=== PATIENT | male | born 1975 | race African-American/Black ===

== ENCOUNTER 2020-01-26 17:37 | Emergency (ER) | payer OTHER ==
[2020-01-26 17:55] LABS: Glucose,Whole Blood 118 mg/dL (75-99)
[2020-01-26] MEDS ORDERED: SODIUM CHLORIDE 0.9% 1,000 ML IV STA (18:14)
[2020-01-26] MEDS ORDERED: predniSONE 20 MG TAB PO STA (18:14)
[2020-01-26] MEDS ORDERED: IPRATROPIUM-ALBUTEROL 3 ML NEB INHALATION STA (18:14)
[2020-01-26] MEDS ORDERED: FAMOTIDINE 20 MG/2 ML VIAL IV STA (18:15)
[2020-01-26 19:31] LABS: Basophils # (A) 0.1 k/uL (0-0.2); Basophils % (A) 1 %; Eosinophils # (A) 0.1 k/uL (0-0.7); Eosinophils % (A) 1 %; HCT 42.6 % (39.0-53.0); HGB 13.7 gm/dL (13.0-17.5); Lymphocytes % (A) 11 %; MCH 28.3 pg (25.0-35.0); MCHC 32.1 g/dL (31.0-37.0); MCV 88.1 fL (80.0-100.0); Mean Platelet Volume 7.6; Monocytes # (A) 0.4 k/uL (0-1.0); Monocytes % (A) 5 %; Neutrophils # (A) 7.2 k/uL (1.3-7.7); Neutrophils % (A) 81 %; Platelet Count 318 k/uL (150-450); RBC 4.84 m/uL (4.30-5.90); RDW 13.1 % (11.5-15.5)
[2020-01-26 19:40] LABS: Albumin 4.4 g/dL (3.5-5.0); Calcium 9.4 mg/dL (8.4-10.2); Potassium 5.2 mmol/L (3.5-5.1); Total Bilirubin 0.7 mg/dL (0.2-1.3); Total Protein 8.1 g/dL (6.3-8.2)
--- NOTE | 2020-01-26 19:45 | XR ---
EXAMINATION TYPE: XR chest 2V DATE OF EXAM: 01/26/2020 COMPARISON: None INDICATION: Difficulty breathing, coughing TECHNIQUE: Frontal and lateral views of the chest are obtained. FINDINGS: The heart size is normal. The pulmonary vasculature is normal. There is a left lower lobe infiltrate. Lungs otherwise appear clear. IMPRESSION: 1. Clinical correlation recommended for left lower lobe pneumonia.
--- NOTE | 2020-01-26 19:49 | CT ---
EXAMINATION TYPE: CT brain tree wo con DATE OF EXAM: 01/26/2020 COMPARISON: HISTORY: fall following syncopal episode CT DLP: 1564.4 mGycm, Automated exposure control for dose reduction was used. CONTRAST: Patient injected with mL of . CT of the brain is performed utilizing 3 mm thick sections through the posterior fossa and 3 mm thick sections through the remaining calvarium. Study is performed within 24 hours of arrival to the hospital. No abnormal hyperdensity is present to suggest an acute intracranial hemorrhage. No mass lesion is evident. No acute infarcts are evident. Ventricles and sulci are appropriate for the patient age. Paranasal sinuses and mastoid air cells within the [id number] are clear. IMPRESSIONS: 1. Normal CT brain. CT cervical spine. COMPARISON: None CT of the cervical spine is performed in the axial plane at 2 mm thick sections. Reconstructed image s in the coronal, and sagittal plane are reviewed on the computer. No acute fractures are evident. Some side bending is present. The patient is within the Gantry asymmetrically. Disc heights are preserved. Vertebral body heights are preserved. No spinal canal stenosis is evident. Some endplate spurring is noted within the cervical spine includ ing the right paracentral region C4 and C5. No neural foraminal stenosis is evident. IMPRESSIONS: 1. Mild degenerative changes. 2. No acute osseous abnormality evident.
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
[2020-01-26] MEDS ORDERED: cefTRIAXone IN SWFI 1,000 MG/10 ML SYRINGE IVP STA (20:06)
[2020-01-26 20:08] VITALS: RESP 17
[2020-01-26 20:34] LABS: INR 1.1 (<1.2); Partial Thromboplastin Time 23.1 sec (22.0-30.0); Prothrombin Time 10.9 sec (9.0-12.0)
[2020-01-26 20:57] VITALS: BP 142/74; PULSE 83; TEMP 98.8
== END 2020-01-26 20:54 | disposition home or self-care (01) ==
LOC: EC 17:37
DX: J18.9 Pneumonia, unspecified organism (principal); S09.90XA Unspecified injury of head, initial encounter; J45.909 Unspecified asthma, uncomplicated; Z79.51 Long term (current) use of inhaled steroids; Z87.891 Personal history of nicotine dependence; W18.39XA Other fall on same level, initial encounter
CPT/HCPCS: 36415; 94640; 93005; 80053; 85025; 85610; 85730; 71046; 72125; 70450; 99285; 96374; 96375; 96361; U0003; J0696